=== PATIENT | female | born 1925 | race Caucasian/White ===

== ENCOUNTER 2016-05-11 13:52 | Outpatient (CLI) | payer MEDICARE | END 2016-05-11 13:53 | disposition home or self-care (01) | DX: M81.0 Age-related osteoporosis without current pathological fracture (principal) ==

== ENCOUNTER 2016-05-11 13:53 | Outpatient (CLI) | payer MEDICARE | END 2016-05-11 13:54 | disposition home or self-care (01) | DX: Z12.31 Encounter for screening mammogram for malignant neoplasm of breast (principal); Z85.3 Personal history of malignant neoplasm of breast ==

== ENCOUNTER 2016-06-19 12:45 | Outpatient (CLI) | payer MEDICARE | END 2016-06-19 12:46 | disposition critical access hospital (66) | DX: T18.128A Food in esophagus causing other injury, initial encounter (principal) | CPT/HCPCS: A0425; A0429 ==

== ENCOUNTER 2016-06-19 12:59 | Emergency (ER) | payer MEDICARE ==
--- NOTE | 2016-06-19 13:23 | ED Physician Documentation ---
History of Present Illness - Stated complaint Stated Complaint: CHOKING - Chief complaint Chief Complaint: General - History obtained from History obtained from: Patient, EMS - History of Present Illness Timing: Today (89-year-old woman presents by ambulance for potential esophageal food impaction. She has a history of a gastric volvulus. She was eating beef stroganoff than feels like it stuck just below level of the clavicles. 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 HEENT: Chronic vision loss Psych: Anxiety Musculoskeletal: Osteoarthritis Derm: None - Past Surgical History Past Surgical History: Yes General: Gastric surgery, Colonoscopy, EGD HEENT: Tonsil/Adenoidectomy - Present Medications Home Medications: Ambulatory Orders Medication Instructions Recorded Confirmed Aspirin 81 mg PO DAILY 07/31/13 01/14/15 Levothyroxine Sodium [Synthroid] 50 mcg PO DAILY 07/31/13 01/14/15 Metoprolol Succinate 25 mg PO BID 07/31/13 01/14/15 Valsartan [Diovan] 160 mg PO DAILY 07/31/13 01/14/15 Nitroglycerin 0.4 mg SL ONCE PRN #1 bottle 08/07/14 01/14/15 amLODIPine [Norvasc] 5 mg PO ONCE 08/07/14 01/14/15 - Allergies Allergies/Adverse Reactions: Allergies Allergy/AdvReac Type Severity Reaction Status Date / Time Iodinated Contrast Media - Allergy Unknown Verified 06/19/16 13:07 Oral and pseudoephedrine AdvReac Rash Verified 06/19/16 13:07 - Social History Does the pt smoke?: Yes Smoking Status: Current every day smoker Does the pt drink ETOH?: No Does the pt have substance abuse?: No - Family History Family history: reports: Non contributory - Immunizations Immunizations are current?: Yes - POLST Patient has POLST: No PD ED PE NORMAL - Vitals Vital signs reviewed: Yes - General General: Alert and oriented X 3, Other (anxious, but speaking in full sentences) - HEENT HEENT: PERRL, EOMI - Neck Neck: Supple, no meningeal sign, No bony TTP - Cardiac Cardiac: RRR, No murmur - Respiratory Respiratory: No respiratory distress, Clear bilaterally - Abdomen Abdomen: Non tender - Derm Derm: Normal color, Warm and dry, No rash - Extremities Extremities: No edema, No calf tenderness / cord - Neuro Neuro: Alert and oriented X 3, Normal speech - Psych Psych: Normal mood, Other (anxious) Results - Vitals Vitals: Vital Signs - 24 hr 06/19/16 06/19/16 13:00 15:00 Temperature 36.2 C L Heart Rate 77 76 Respiratory 22 18 Rate Blood Pressure 177/82 H 156/88 H O2 Saturation 99 98 Oxygen O2 Source [Without Activity] Room air O2 Source Room air PD MEDICAL DECISION MAKING - ED course ED course: 89-year-old woman with esophageal food impaction. She has a history of a gastric volvulus and hiatal hernia. She was administered glucagon a little bit of Ativan, still unable to tolerate liquids. The glucagon was repeated along with some nitroglycerin, again without resolution, still unable to tolerate liquids. The operating room is closed today, call to to see if they can take her for endoscopy at 230 p.m. Review of the chart shows that on 11/26/2014 she had a single and double contrast upper GI series showing a hiatal hernia with the proximal third of the stomach in the chest, there was no evidence of recurrence of the gastric volvulus or mechanical obstruction. She did have evidence of GERD. I spoke with the on-call surgeon at [place], Dr. Duarte, about 245 p.m., but was notified at that time that the patient had improved and now was able to swallow liquids pain mostly and she felt like the obstruction passed. Departure - Departure Disposition: 01 Home, Self Care Clinical Impression: Esophageal obstruction due to food impaction Condition: Stable Record reviewed to determine appropriate education?: Yes Instructions: ED Foreign Body Esophageal Rslv Comments: Call your doctor to arrange a follow up appointment. Make the next available appointment. In the interim return anytime if worse or if new symptoms develop. Your blood pressure was elevated today on check in to the emergency department. This does not mean that you have hypertension, it is a common phenomenon to check into the emergency department and have elevated blood pressure. I recommend that you see your primary care physician within the week to have it rechecked when you're feeling better. Discharge Date/Time: 06/19/16 15:01
[2016-06-19] MEDS ORDERED: WATER FOR INJECTION,STERILE 10 ML ONE ×2 (13:29→14:01)
[2016-06-19] MEDS ORDERED: GLUCAGON 1 MG/ML VIAL ONE ×2 (13:29→14:00)
[2016-06-19] MEDS: LORazepam 2 MG/ML SYRINGE IVP STA (13:38)
[2016-06-19] MEDS: GLUCAGON 1 MG/ML VIAL IVP STA ×2 (13:38→14:06)
[2016-06-19] MEDS ORDERED: NITROGLYCERIN SL 0.4 MG TABLET SL ONE (14:00)
[2016-06-19] MEDS: NITROGLYCERIN SL 0.4 MG TABLET SL STA (14:06)
[2016-06-19 15:01] VITALS: BP 156/88
== END 2016-06-19 15:01 | disposition home or self-care (01) ==
LOC: EDUNIT# → ED 12:59
DX: T18.128A Food in esophagus causing other injury, initial encounter (principal); X58.XXXA Exposure to other specified factors, initial encounter; R03.0 Elevated blood-pressure reading, without diagnosis of hypertension; I10 Essential (primary) hypertension; K21.9 Gastro-esophageal reflux disease without esophagitis; K44.9 Diaphragmatic hernia without obstruction or gangrene; M19.90 Unspecified osteoarthritis, unspecified site; Z85.3 Personal history of malignant neoplasm of breast; F17.200 Nicotine dependence, unspecified, uncomplicated
CPT/HCPCS: 96374; 96375; 99283; 99284; 99285

== ENCOUNTER 2016-06-20 15:14 | Outpatient (CLI) | payer MEDICARE | END 2016-06-20 15:15 | disposition home or self-care (01) | DX: M51.36 Other intervertebral disc degeneration, lumbar region (principal); M51.34 Other intervertebral disc degeneration, thoracic region; M41.86 Other forms of scoliosis, lumbar region; M43.17 Spondylolisthesis, lumbosacral region; I70.90 Unspecified atherosclerosis ==

== ENCOUNTER 2017-04-11 07:39 | Outpatient (CLI) | payer MEDICARE ==
[2017-04-11 12:25] LABS: BASOPHILS # (AUTO) 0.1 10^3/uL (0.0-0.1); BASOPHILS % (AUTO) 2.3 %; EOSINOPHILS # (AUTO) 0.3 10^3/uL (0.0-0.7); EOSINOPHILS % (AUTO) 5.6 %; HGB - HEMOGLOBIN 13.5 g/dL (12.0-16.0); LYMPHOCYTES # (AUTO) 1.4 10^3/uL (1.5-3.5); LYMPHOCYTES % (AUTO) 28.3 %; MEAN CORPUSCULAR HEMOGLOBIN 31.1 pg (27.0-31.0); MEAN CORPUSCULAR HGB CONC 33.6 g/dL (32.0-36.0); MEAN CORPUSCULAR VOLUME 92.7 fL (81.0-99.0); MEAN PLATELET VOLUME 8.8 fL (7.9-10.8); MONOCYTES # (AUTO) 0.5 10^3/uL (0.0-1.0); MONOCYTES % (AUTO) 9.8 %; NEUTROPHILS # (AUTO) 2.6 10^3/uL (1.5-6.6); PLT - PLATELET COUNT 208 10^3/uL (130-450); RED BLOOD COUNT 4.35 10^6/uL (4.20-5.40); RED CELL DISTRIBUTION WIDTH 13.2 % (12.0-15.0); WHITE BLOOD COUNT 4.8 x10^3/uL (4.8-10.8)
[2017-04-11 13:43] LABS: ALBUMIN/GLOBULIN RATIO 1.3 (1.0-2.2); ALKALINE PHOSPHATASE 60 IU/L (42-121); ALT ALANINE AMINOTRANSFERASE 19 IU/L (10-60); AST ASPARTATE AMINOTRANSFERASE 24 IU/L (10-42); BILIRUBIN,TOTAL 0.8 mg/dL (0.2-1.0); BUN - BLOOD UREA NITROGEN 18 mg/dL (6-20); CALCIUM 10.5 mg/dL (8.5-10.3); CARBON DIOXIDE - CO2 29 mmol/L (21-32); CHLORIDE 102 mmol/L (101-111); CHOL/HDL RATIO 3.8 (<4.4); CHOLESTEROL 179 mg/dL; CREATININE 0.7 mg/dL (0.4-1.0); GFR - MDRD 79 (>89); GLUCOSE 95 mg/dL (70-100); HDL CHOLESTEROL 47 mg/dL; LDL CHOLESTEROL,CALCULATED 109 mg/dL; LDL/HDL RATIO 2.3 (<4.4); SODIUM 136 mmol/L (135-145); TOTAL PROTEIN 7.2 g/dL (6.7-8.2); VLDL CHOLESTEROL 23 mg/dL
[2017-04-11 13:48] LABS: HB2 TOTAL 14.7 g/dL; HEMOGLOBIN A1C 0.56 g/dL; HEMOGLOBIN A1C % 5.6 % (4.6-6.2)
== END 2017-04-11 07:40 | disposition home or self-care (01) ==
LOC: LAB.N 07:39
PROVIDERS: ATTEND Internal Medicine
DX: G62.9 Polyneuropathy, unspecified (principal); E78.5 Hyperlipidemia, unspecified; C50.919 Malignant neoplasm of unspecified site of unspecified female breast; E03.9 Hypothyroidism, unspecified; I10 Essential (primary) hypertension; K21.9 Gastro-esophageal reflux disease without esophagitis; Z79.899 Other long term (current) drug therapy
CPT/HCPCS: 36415; 80053; 80061; 83036; 83721; 84443; 85025

== ENCOUNTER 2017-06-07 10:22 | Outpatient (CLI) | payer MEDICARE ==
[2017-06-07 13:10] LABS: CALCIUM 10.9 mg/dL (8.5-10.3); PHOSPHORUS 2.5 mg/dL (2.5-4.6)
== END 2017-06-07 10:23 | disposition home or self-care (01) ==
LOC: LAB.N 10:22
PROVIDERS: ATTEND Internal Medicine
DX: E83.52 Hypercalcemia (principal)
CPT/HCPCS: 36415; 82310; 83970; 84100

== ENCOUNTER 2017-06-19 15:19 | Outpatient (CLI) | payer MEDICARE ==
--- NOTE | 2017-06-19 17:27 | XRAY Report ---
CHEST, TWO VIEWS: 06/19/2017 HISTORY: Weak, productive cough. COMPARISON: 10/30/2014 FINDINGS: A hiatal hernia is present. The heart size is normal. The lungs are clear. There is no pleural fluid or pneumothorax. Surgical clips left axilla. Degenerative change in the spine. IMPRESSION: CLEAR LUNGS. NO ACUTE FINDINGS. TD: 06/19/2017 17:26 MTDD
== END 2017-06-19 15:20 | disposition home or self-care (01) ==
LOC: DI 15:19
PROVIDERS: ATTEND Nurse Practitioner Primary Care
DX: J06.9 Acute upper respiratory infection, unspecified (principal)
CPT/HCPCS: 71046

== ENCOUNTER 2017-08-22 08:00 | Outpatient (CLI) | payer MEDICARE | END 2017-08-22 08:01 | disposition home or self-care (01) | LOC: LAB.R 08:00 | PROVIDERS: ATTEND Internal Medicine | DX: R07.2 Precordial pain (principal) | CPT/HCPCS: 84484 ==

== ENCOUNTER 2017-09-12 13:12 | Outpatient (CLI) | payer MEDICARE ==
--- NOTE | 2017-09-13 10:02 | Mammography Report ---
Procedure Date: 09/12/2017 Accession Number: [id number] / [id number] Procedure: SANKET - Screening Mammo Dig Bilat CPT Code: FULL RESULT: EXAM: Screening Mammo Dig Bilat DATE: 09/12/2017 1:34 PM CLINICAL HISTORY: 89-year-old with personal history of left breast cancer status post lumpectomy and radiation therapy, family history of breast cancer for screening. TECHNIQUE: Bilateral CC and MLO views were obtained. COMPARISON: 05/11/2016, 11/26/2014, 08/04/2011 FINDINGS: The breasts demonstrate scattered fibroglandular densities bilaterally. Postoperative and posttreatment changes are again seen. Coarse and punctate, typically benign calcifications are present. There is a possible nodule in the left upper outer central breast. Further evaluation with spot compression views and possible ultrasound is recommended. No mammographically suspicious findings are appreciated in the right breast. No suspicious masses, clustered microcalcifications, or regions of architectural distortion are identified. IMPRESSION: Incomplete examination RECOMMENDATION: Additional evaluation as above. BIRADS CATEGORY 0: Incomplete examination STANDARD QUALIFYING STATEMENTS: 1. This examination was reviewed with the aid of Computer-Aided Detection (CAD). 2. A negative or benign imaging report should not delay biopsy if clinically suspicious findings are present. Consider surgical consultation if warrented. More than 5% of cancers are not identified by imaging. 3. Dense breasts may obscure an underlying neoplasm.
== END 2017-09-12 13:13 | disposition home or self-care (01) ==
LOC: DI 13:12
PROVIDERS: ATTEND Internal Medicine
DX: Z12.31 Encounter for screening mammogram for malignant neoplasm of breast (principal); R92.8 Other abnormal and inconclusive findings on diagnostic imaging of breast; Z85.3 Personal history of malignant neoplasm of breast; Z80.3 Family history of malignant neoplasm of breast
CPT/HCPCS: 77067

== ENCOUNTER 2017-09-18 17:59 | Emergency (ER) | payer MEDICARE ==
[2017-09-18 18:36] LABS: BASOPHILS # (AUTO) 0.1 10^3/uL (0.0-0.1); BASOPHILS % (AUTO) 0.9 %; EOSINOPHILS % (AUTO) 0.4 %; HGB - HEMOGLOBIN 14.1 g/dL (12.0-16.0); LYMPHOCYTES # (AUTO) 1.2 10^3/uL (1.5-3.5); LYMPHOCYTES % (AUTO) 16.4 %; MEAN CORPUSCULAR HEMOGLOBIN 31.6 pg (27.0-31.0); MEAN PLATELET VOLUME 7.8 fL (7.9-10.8); MONOCYTES # (AUTO) 0.5 10^3/uL (0.0-1.0); MONOCYTES % (AUTO) 6.4 %; NEUTROPHILS # (AUTO) 5.7 10^3/uL (1.5-6.6); NEUTROPHILS % (AUTO) 75.9 %; PLT - PLATELET COUNT 232 10^3/uL (130-450); RED BLOOD COUNT 4.46 10^6/uL (4.20-5.40); RED CELL DISTRIBUTION WIDTH 13.3 % (12.0-15.0); WHITE BLOOD COUNT 7.6 x10^3/uL (4.8-10.8)
[2017-09-18 18:48] LABS: ALBUMIN 4.3 g/dL (3.2-5.5); ALBUMIN/GLOBULIN RATIO 1.1 (1.0-2.2); BILIRUBIN,TOTAL 0.7 mg/dL (0.2-1.0); CREATININE 0.9 mg/dL (0.4-1.0); TOTAL PROTEIN 8.1 g/dL (6.7-8.2)
--- NOTE | 2017-09-18 18:48 | ED Physician Documentation ---
PD HPI DYSPNEA - Stated complaint Stated Complaint: CP/NAUSEA - Chief complaint Chief Complaint: Cardiac - History obtained from History obtained from: Patient - History of Present Illness Timing - onset: How many hours ago (6), Today Timing - onset during: Eating (The patient states she is feeling okay this morning without any dyspnea chest pain or other problems. She has not had any recent cough. She was eating lunch of turkey tetrazine he and states that she started eating slightly fast and had an onset of substernal chest pain and pressure. She felt the urge of nausea and attempted vomiting but no food came up. She has had increased pain with any attempts at sipping fluids. She is periodically spitting up saliva. This continued for several hours and she is here now for evaluation. She has had similarly in the past but has resolved within 5 or 10 minutes.) Timing - duration: Hours (6) Timing - details: Abrupt onset, Still present Inciting event(s): No: URI, Allergic rxn/anaphylaxis Improved by: Other (spitting up saliva) Worsened by: Other (any attempts of sips of fluid.) Associated symptoms: Chest pain / discomfort. No: Fever, Cough, Wheezing Review of Systems Constitutional: denies: Fever, Chills Nose: denies: Rhinorrhea / runny nose, Congestion Throat: denies: Sore throat Cardiac: reports: Chest pain / pressure. denies: Palpitations, Pedal edema, Calf pain Respiratory: denies: Dyspnea, Cough GI: reports: Nausea, Vomiting (small amounts clear saliva/fluid periodically.) : denies: Dysuria, Frequency Skin: denies: Rash, Lesions Neurologic: reports: Generalized weakness. denies: Focal weakness, Numbness Endocrine: reports: Easy bruising / bleeding. 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 HEENT: Chronic vision loss Psych: Anxiety Musculoskeletal: Osteoarthritis Derm: None - Past Surgical History Past Surgical History: Yes General: Gastric surgery, Colonoscopy, EGD HEENT: Tonsil/Adenoidectomy - Present Medications Home Medications: Ambulatory Orders Medication Instructions Recorded Confirmed Aspirin 81 mg PO DAILY 07/31/13 01/14/15 Levothyroxine Sodium [Synthroid] 50 mcg PO DAILY 07/31/13 01/14/15 Metoprolol Succinate 25 mg PO BID 07/31/13 01/14/15 Valsartan [Diovan] 160 mg PO DAILY 07/31/13 01/14/15 Nitroglycerin 0.4 mg SL ONCE PRN #1 bottle 08/07/14 01/14/15 amLODIPine [Norvasc] 5 mg PO ONCE 08/07/14 01/14/15 - Allergies Allergies/Adverse Reactions: Allergies Allergy/AdvReac Type Severity Reaction Status Date / Time Iodinated Contrast- Oral and Allergy Unknown Verified 06/19/16 13:07 IV Dye pseudoephedrine AdvReac Rash Verified 06/19/16 13:07 - Social History Does the pt smoke?: Yes Smoking Status: Current every day smoker Does the pt drink ETOH?: No Does the pt have substance abuse?: No - Immunizations Immunizations are current?: Yes - POLST Patient has POLST: No PD ED PE NORMAL - Vitals Vital signs reviewed: Yes - General General: Alert and oriented X 3, Well developed/nourished, Other (appears uncomfortable due to chest pressure substernal. This improves when she spits/ vomitis up some saliva periodically. ) - HEENT HEENT: Moist mucous membranes, Pharynx benign - Neck Neck: Supple, no meningeal sign, No adenopathy - Cardiac Cardiac: RRR, No murmur - Respiratory Respiratory: Clear bilaterally - Abdomen Abdomen: Normal bowel sounds, Soft, Non tender, Non distended - Female Female : Deferred - Rectal Rectal: Deferred - Back Back: No CVA TTP - Derm Derm: Normal color, Warm and dry - Extremities Extremities: No deformity, No tenderness to palpate, Normal ROM s pain, No edema , No calf tenderness / cord - Neuro Neuro: Alert and oriented X 3, No motor deficit, Normal speech - Psych Psych: Normal mood Results - Vitals Vitals: Vital Signs - 24 hr 09/18/17 09/18/17 09/18/17 18:07 18:45 20:00 Temperature 37.0 C Heart Rate 100 66 Respiratory 35 H 26 H Rate Blood Pressure 168/75 H 161/67 H Blood Pressure 161/79 H [Left] O2 Saturation 87 L 100 09/18/17 21:54 Temperature Heart Rate 69 Respiratory 16 Rate Blood Pressure 147/69 H Blood Pressure [Left] O2 Saturation 97 Oxygen O2 Source [Without Activity] Room air O2 Source Nasal cannula - EKG (time done) 18:07 Rate: Rate (enter#) (64) Rhythm: NSR [place]: Normal Intervals: Normal [place] QRS: Normal Ischemia: Normal ST segments. No: ST elevation c/w ischemia, ST depression Compare to prior EKG: Old EKG unavailable - Labs Labs: Laboratory Tests 09/18/17 09/18/17 09/18/17 18:16 18:30 18:30 WBC 7.6 RBC 4.46 Hgb 14.1 Hct 41.4 MCV 93.0 MCH 31.6 H MCHC 34.0 RDW 13.3 Plt Count 232 MPV 7.8 L Neut # (Auto) 5.7 Lymph # (Auto) 1.2 L [place] # (Auto) 0.5 Eos # (Auto) 0.0 Baso # (Auto) 0.1 Absolute Nucleated RBC 0.00 Nucleated RBC % 0.0 Sodium 132 L Potassium 3.7 Chloride 97 L Carbon Dioxide 24 Anion Gap 11.0 BUN 20 Creatinine 0.9 Estimated GFR (MDRD) 59 L Glucose 110 H Calcium 11.0 H Total Bilirubin 0.7 AST 30 ALT 22 Alkaline Phosphatase 75 Troponin I B-Natriuretic Peptide 136 H Total Protein 8.1 Albumin 4.3 Globulin 3.8 Albumin/Globulin Ratio 1.1 Lipase 22 09/18/17 18:30 WBC RBC Hgb Hct MCV MCH MCHC RDW Plt Count MPV Neut # (Auto) Lymph # (Auto) [place] # (Auto) Eos # (Auto) Baso # (Auto) Absolute Nucleated RBC Nucleated RBC % Sodium Potassium Chloride Carbon Dioxide Anion Gap BUN Creatinine Estimated GFR (MDRD) Glucose Calcium Total Bilirubin AST ALT Alkaline Phosphatase Troponin I < 0.04 B-Natriuretic Peptide Total Protein Albumin Globulin Albumin/Globulin Ratio Lipase - Rads (name of study) chest xray Radiology: Prelim report reviewed, EMP read contemporaneously (no acute findings ) PD MEDICAL DECISION MAKING - ED course Complexity details: reviewed results, re-evaluated patient (She was given some IV fluids along with antiemetic ondansetron. She is given IV glucagon, morphine and then also a sublingual nitroglycerin and attempts for esophageal relaxation. She states the discomfort in her chest was improved. She is still spitting up saliva periodically. Attempts at oral intake which is sips of fluid with some easy gas as well caused increased discomfort substernally and she had to vomit up the clear fluids. There is no food vomited. She is still unable to tolerate more than 6 even sips of water. It still seems like an esophageal impaction.), considered differential, d/w patient, other (Talked with [facility], who will arrange transfer to another facility for treatment. This ended up being a extended period of time for them to find placement and arrange transfer. During this time the patient is comfortable but is still periodically spitting up saliva. She attempted some sips of water again when she thought she felt better but got the chest discomfort and had to spit back up the water again. We will maintain IV fluids and the patient will be transferred for gastroenterological intervention.) - Sepsis Event Vital Signs: Vital Signs - 24 hr 09/18/17 09/18/17 09/18/17 18:07 18:45 20:00 Temperature 37.0 C Heart Rate 100 66 Respiratory 35 H 26 H Rate Blood Pressure 168/75 H 161/67 H Blood Pressure 161/79 H [Left] O2 Saturation 87 L 100 09/18/17 21:54 Temperature Heart Rate 69 Respiratory 16 Rate Blood Pressure 147/69 H Blood Pressure [Left] O2 Saturation 97 Oxygen O2 Source [Without Activity] Room air O2 Source Nasal cannula Departure - Departure Disposition: 02 Transfer Acute Care Hosp Clinical Impression: Chest pain Qualifiers: Chest pain type: precordial pain Qualified Code(s): R07.2 - Precordial pain Food impaction of esophagus Qualifiers: Encounter type: initial encounter Qualified Code(s): T18.128A - Food in esophagus causing other injury, initial encounter Condition: Stable
[2017-09-18] MEDS ORDERED: GLUCAGON 1 MG/ML VIAL IVP STA (19:17)
[2017-09-18] MEDS ORDERED: ONDANSETRON 4 MG/2 ML VIAL IVP STA (19:17)
[2017-09-18] MEDS ORDERED: SODIUM CHLORIDE 0.9% 500 ML IV ONE (19:17)
[2017-09-18] MEDS ORDERED: NITROGLYCERIN SL 0.4 MG TABLET SL STA (19:17)
[2017-09-18] MEDS ORDERED: MORPHINE 2 MG/ML SYRINGE IVP STA (19:18)
--- NOTE | 2017-09-18 19:20 | XRAY Report ---
Procedure Date: 09/18/2017 Accession Number: [id number] / [id number] Procedure: XR - Chest 2 View X-Ray CPT Code: 62503 FULL RESULT: EXAM: CHEST RADIOGRAPHY EXAM DATE: 09/18/2017 06:34 PM. CLINICAL HISTORY: Chest pain. COMPARISON: 06/19/2017. 10/30/2014. TECHNIQUE: 2 views. FINDINGS: Lungs/Pleura: Suspect subsegmental bronchiectasis anterior segment left lower lobe, unchanged since 10/30/2014. No new focal opacities evident. No pleural effusion. No pneumothorax. Normal volumes. Mediastinum: New mild cardiomegaly. No tracheal shift. Other: Stable moderate hiatal hernia. Remote left breast surgery. Chronic bilateral rotator cuff tears. IMPRESSION: 1. Moderate hiatal hernia. 2. New mild cardiomegaly. 3. 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 RADIA
[2017-09-19] MEDS ORDERED: FAMOTIDINE 20 MG/50 ML 50 ML IV ONE (00:32)
[2017-09-19] MEDS ORDERED: SODIUM CHLORIDE 0.9% 500 ML IV ONE (00:32)
[2017-09-19 01:13] VITALS: BP 140/70
== END 2017-09-19 02:05 | disposition short-term general hospital (02) ==
LOC: ED 17:59
DX: R07.2 Precordial pain (principal); T18.128A Food in esophagus causing other injury, initial encounter; K44.9 Diaphragmatic hernia without obstruction or gangrene; I10 Essential (primary) hypertension; Z79.82 Long term (current) use of aspirin
CPT/HCPCS: 36415; 71046; 80053; 83690; 83880; 84484; 85025; 93005; 96361; 96365; 96375; 99285; A9270; J2270; 99284